=== PATIENT | male | born 1990 | race African-American/Black ===

== ENCOUNTER 2016-11-23 11:10 | Emergency (ER) | payer OTHER ==
[~2016-11-23] VITALS: Ht 182.9 cm; Wt 104.3 kg
[2016-11-23 11:37] VITALS: BP 116/73
[2016-11-23] MEDS ORDERED: CEFTRIAXONE IM 250 MG VIAL. IM ONE (12:30)
[2016-11-23] MEDS ORDERED: AZITHROMYCIN 250 MG TABLET PO ONE (12:30)
[2016-11-23 12:33] LABS: BILIRUBIN,URINE NEGATIVE (NEG); GLUCOSE,URINE NEGATIVE (NEG); NITRITE,URINE NEGATIVE (NEG); PROTEIN,URINE NEGATIVE (NEG-TRACE); UROBILINOGEN,URINE 0.2 mg/dL (0.2 mg/dL)
[2016-11-23 12:47] LABS: BACTERIA,URINE 0 /HPF (0-FEW); SQUAMOUS EPITHELIAL CELL,UR OCC /LPF; WBC,URINE 0 /HPF (0-4)
--- NOTE | 2016-11-23 13:01 | PHYS DOC ---
Past Medical History Past Medical History: STD Past Surgical History: No Surgical History Alcohol Use: Occasionally Drug Use: None Adult General Chief Complaint Chief Complaint: SEXUALLY TRANSMITTED DISEASE HPI HPI Patient is a 26 year old male who presents for STD check. Patient states he is sexually active with 1 partner. States during a recent encounter the condom broke while having intercourse. Now complains of penile tingling & white discharge. Denies fevers/chills, nausea/vomiting, abdominal pain, dysuria. Previously treated for trichomonas. At this time sexual partner is asymptomatic. Patient does not have a PCP. Review of Systems Review of Systems Constitutional: Denies fever or chills Respiratory: Denies cough Cardiovascular: Denies chest pain GI: Denies abdominal pain, nausea, vomiting, or diarrhea : Denies dysuria or hematuria, reports penile discomfort & discharge Musculoskeletal: Denies back pain Integument: Denies rash or skin lesions Neurologic: Denies headache Current Medications Current Medications Current Medications Medications (Trade) Dose Ordered Sig/Tarsha Start Time Stop Time Status Last Admin Dose Admin Azithromycin (Zithromax) 1,000 mg 1X ONCE 11/23/16 12:30 11/23/16 12:33 DC 11/23/16 12:43 1,000 MG Ceftriaxone Sodium (Rocephin Im) 250 mg 1X ONCE 11/23/16 12:30 11/23/16 12:33 DC 11/23/16 12:44 250 MG Allergies Allergies Allergies Coded Allergies Type Severity Reaction Last Updated Verified No Known Drug Allergies 11/23/16 No Physical Exam Physical Exam Constitutional: obese, no acute distress, non-toxic appearance. HENT: Normocephalic, atraumatic, bilateral external ears normal, oropharynx moist, nose normal. Eyes: conjunctiva normal, no discharge. Cardiovascular: no edema. Lungs & Thorax: no respiratory distress. Abdomen: soft, nontender, nondistended. : exam with NAEEM Avila present as formulation scientist. normal appearing male external genitalia with circumcised penis, no rashes, no discharge noted, no testicular pain or swelling. Skin: Warm, dry, no erythema, no rash. Back: No tenderness. Extremities: No edema. Neurologic: Alert and oriented X 3 Current Patient Data Vital Signs Vital Signs Date Time Temp Pulse Resp B/P Pulse Ox O2 Delivery O2 Flow Rate FiO2 11/23/16 11:37 98 70 16 116/73 98 98.0 Lab Values Laboratory Tests Test 11/23/16 11:45 Urine Collection Type Unknown Urine Color Yellow Urine Clarity Clear Urine pH 6.0 Urine Specific [place] 1.015 Urine Protein Negativemg/dL (NEG-TRACE) Urine Glucose (UA) Negativemg/dL (NEG) Urine Ketones (Stick) Negativemg/dL (NEG) Urine Blood Negative (NEG) Urine Nitrite Negative (NEG) Urine Bilirubin Negative (NEG) Urine Urobilinogen Dipstick 0.2mg/dL (0.2 mg/dL) Urine Leukocyte Esterase Negative (NEG) Urine RBC 1-2/HPF (0-2) Urine WBC 0/HPF (0-4) Urine Squamous Epithelial Cells Occ/LPF Urine Bacteria 0/HPF (0-FEW) EKG EKG [] Radiology/Procedures Radiology/Procedures [] Course & Med Decision Making Course & Med Decision Making Pertinent Labs and Imaging studies reviewed. (See chart for details) Patient presents with possible STD exposure. Would like to be empirically treated. Gave rocephin & azithromycin here, obtained UA as well as urine gonorrhea/chlamydia. Recommend that partner also be evaluated & treated, follow up with health department if desiring testing for additional STDs, always use protection when having intercourse. Follow up in 1 week with a primary care doctor. Discharged home in stable condition. [] Dragon Disclaimer Dragon Disclaimer This electronic medical record was generated, in whole or in part, using a voice recognition dictation system. Departure Departure Impression: Primary Impression: Exposure to STD Disposition: 01 HOME, SELF-CARE Condition: STABLE Referrals: NO PCP (PCP) Patient Instructions: Sexually Transmitted Disease Additional Instructions: You were seen in the emergency department today for possible sexually transmitted disease. The urine test was negative for Trichomonas. You were treated for gonorrhea and chlamydia. Please be sure to always use condoms when having intercourse to protect against future exposure. Follow-up with a primary care physician in one week. Return to the emergency department for high fever, severe abdominal pain, uncontrolled vomiting, any otherwise worsening condition. ROBBY HAZEL MD Nov 23, 2016 13:01
== END 2016-11-23 13:09 | disposition home or self-care (01) ==
LOC: ER 11:10
DX: Z20.2 Contact with and (suspected) exposure to infections with a predominantly sexual mode of transmission (principal)
CPT/HCPCS: 81001; 87491; 87591; 96372; 99284; J0696; Q0144